=== PATIENT | male | born 1960 | race African-American/Black ===

== ENCOUNTER 2018-10-15 10:05 | Day surgery (SDC) | payer MEDICARE ==
[2018-10-15 11:27] VITALS: BP 157/89; TEMP 98.2
[2018-10-15 12:42] LABS: Color Of CSF Supernatant COLORLESS (Colorless); Tube # 2; Unspun CSF Color COLORLESS (Colorless)
[2018-10-15 12:53] LABS: CSF Source CSF; Clarity Clear (Clear); RBC Count - Manual 0 /cumm (None Seen); Tube # 4; WBC/NonHematics Count - Manual 1 /cumm (0-5)
[2018-10-15 13:12] LABS: CSF, Glucose 55 mg/dl (40-70); CSF, Protein 52 mg/dL (15-40)
--- NOTE | 2018-10-15 14:36 | RAD ---
FLUOROSCOPIC GUIDED LUMBAR PUNCTURE: CLINICAL HISTORY: Neurosyphilis. History of HIV. FLUOROSCOPY DATA: 0.1 minutes intermittent fluoroscopy, 4.4 mGy*^cm2. PROCEDURE: After informed consent had been obtained, the patient was escorted to the interventional suite and sc out imaging of the lumbar spine was performed. The patient was then placed in the prone position and the back was prepped and draped in a standard sterile fashion and topical anesthesia was achieved wi th buffered 1% Lidocaine. Using a 22-gauge needle, uneventful access into the thecal sac was achieve d at the L5 level, via a right interlaminar approach. A total of 10 cc clear colorless CSF was colle cted into 4 separate sealed containers which were sent to the laboratory for further analysis. The n eedle was removed. The patient tolerated the procedure well without evidence of complication. Imagi ng was stored for documentation. IMPRESSION: 1. Technically successful fluoroscopically guided lumbar puncture. 2. Laboratory results are pending. POS: [facility]
== END 2018-10-15 12:35 | disposition home or self-care (01) ==
LOC: SPEC 10:05
PROVIDERS: ATTEND Internal Medicine Infectious Disease
PROC: 009U3ZX Drainage of Spinal Canal, Percutaneous Approach, Diagnostic (ICD-10-PCS; principal; 2018-10-15)
DX: A52.3 Neurosyphilis, unspecified (principal); F10.10 Alcohol abuse, uncomplicated; I69.351 Hemiplegia and hemiparesis following cerebral infarction affecting right dominant side; I10 Essential (primary) hypertension; Z21 Asymptomatic human immunodeficiency virus [HIV] infection status
CPT/HCPCS: 62270; 82945; 84157; 86592; 89051

== ENCOUNTER 2020-05-12 14:40 | Outpatient (CLI) | payer MEDICARE ==
--- NOTE | 2020-05-12 14:59 | RAD ---
PA AND LATERAL CHEST: 05/12/20 HISTORY: HIV, shortness of breath. COMPARISON: 11/25/16 study. Heart size and mediastinum are within normal limits. The lungs are clear of any infiltrates. No signi ficant bony findings. IMPRESSION: No active intrathoracic disease. POS: [facility]
== END 2020-05-12 14:41 | disposition home or self-care (01) ==
LOC: BICRAD 14:40
PROVIDERS: ATTEND Internal Medicine
DX: B20 Human immunodeficiency virus [HIV] disease (principal); R06.02 Shortness of breath
CPT/HCPCS: 36415; 71046; 80053; 80061; 83036; 83880; 84443; 85025; 86140